=== PATIENT | female | born 1985 | race Asian ===

== ENCOUNTER 2021-08-23 15:27 | Outpatient (REF) | payer BC, SELFPAY ==
[2021-08-23 16:54] LABS: HCT 45.4 % (36.0-46.0); HGB 14.9 g/dL (11.2-15.7); MCH 29.3 pg (27.0-33.0); MCHC 32.8 % (32.0-36.0); MCV 89 fL (80-95); MPV 8.3 fL (8.0-11.0); Platelet Count 375 10^3/uL (130-400); RBC 5.09 10^6/uL (3.93-5.22); RDW 12.5 % (11.7-14.6); RDW-SD 41.3 fL; WBC 8.34 10^3/uL (4.4-10.8)
[2021-08-23 16:56] LABS: ALT 26 U/L (14-59); AST 18 U/L (15-37); Albumin 4.2 g/dL (3.4-5.0); Alkaline Phosphatase 69 U/L (46-116); Anion Gap 9.4 mmol/L (3-11); BUN 12 mg/dL (7-18); Bilirubin, Total 0.2 mg/dL (0.2-1.0); CO2 26.6 mmol/L (21.0-32.0); CREATININE 0.7 mg/dL (0.55-1.02); Calcium 9.4 mg/dL (8.5-10.1); Chloride 104 mmol/L (98-107); Glucose 101 mg/dL (74-106); Potassium 4.3 mmol/L (3.5-5.1); Sodium 140 mmol/L (136-145); Total Protein 8.1 g/dL (6.4-8.2)
[2021-08-23 17:20] LABS: Hemoglobin A1C 5.4 % (<5.7)
== END 2021-08-23 15:28 | disposition home or self-care (01) ==
LOC: NCHCN 15:27
PROVIDERS: Visit Provider Nurse Practitioner Family
DX: R73.03 Prediabetes (principal); Z51.81 Encounter for therapeutic drug level monitoring
CPT/HCPCS: 80053; 85027; 83036; 85025

== ENCOUNTER 2021-09-11 14:33 | Outpatient (REF) | payer BC, SELFPAY ==
[2021-09-11 15:03] LABS: Lithium 0.5 mmol/l (0.6-1.2)
== END 2021-09-11 14:34 | disposition home or self-care (01) ==
LOC: NCHCN 14:33
PROVIDERS: PCP Nurse Practitioner Family; Visit Provider Nurse Practitioner Family
DX: F31.9 Bipolar disorder, unspecified (principal); Z51.81 Encounter for therapeutic drug level monitoring
CPT/HCPCS: 80178

== ENCOUNTER 2021-12-28 01:34 | Outpatient (CLI) | payer BC, SELFPAY ==
[2021-12-28 13:11] LABS: Hemoglobin A1C 5.5 % (<5.7)
== END 2021-12-28 01:35 | disposition home or self-care (01) ==
LOC: LOS 01:34
PROVIDERS: PCP Nurse Practitioner Family; Visit Provider Nurse Practitioner Family
DX: R73.03 Prediabetes (principal)
CPT/HCPCS: 36415; 83036

== ENCOUNTER 2022-06-10 04:57 | Outpatient (CLI) | payer BC, SELFPAY ==
[2022-06-10 12:35] LABS: Lithium 0.8 mmol/l (0.6-1.2)
[2022-06-10 12:42] LABS: ALT 24 U/L (14-59); AST 15 U/L (15-37); Albumin 4.1 g/dL (3.4-5.0); Alkaline Phosphatase 74 U/L (46-116); Anion Gap 5.5 mmol/L (3-11); BUN 10 mg/dL (7-18); Bilirubin, Total 0.3 mg/dL (0.2-1.0); CO2 28.5 mmol/L (21.0-32.0); CREATININE 0.9 mg/dL (0.55-1.02); Calcium 9.2 mg/dL (8.5-10.1); Chloride 106 mmol/L (98-107); Estimated GFR 84.44 (mL/min/1.73m2); FREE T4 1.05 ng/dL (0.76-1.46); Glucose 102 mg/dL (74-106); Potassium 4.1 mmol/L (3.5-5.1); Sodium 140 mmol/L (136-145); TSH 0.55 uIU/mL (0.36-3.74); Total Protein 8.3 g/dL (6.4-8.2)
[2022-06-10 12:55] LABS: Vitamin D 25 Total 43.6 ng/mL (30-100)
== END 2022-06-10 04:58 | disposition home or self-care (01) ==
PROVIDERS: PCP Nurse Practitioner Family; Visit Provider Family Medicine
DX: Z51.81 Encounter for therapeutic drug level monitoring (principal)
CPT/HCPCS: 36415; 80053; 82306; 80178; 84439; 84443

== ENCOUNTER 2022-09-23 03:52 | Outpatient (CLI) | payer BC, SELFPAY ==
[2022-09-23 14:26] LABS: ESR 7 mm/hr (0-20)
[2022-09-23 15:30] LABS: ALT 24 U/L (14-59); AST 15 U/L (15-37); Alkaline Phosphatase 72 U/L (46-116); BUN 7 mg/dL (7-18); Bilirubin, Total 0.4 mg/dL (0.2-1.0); CREATININE 0.7 mg/dL (0.55-1.02); Calcium 9.1 mg/dL (8.5-10.1); Chloride 103 mmol/L (98-107); Estimated GFR 114.16 (mL/min/1.73m2); FREE T4 1.14 ng/dL (0.76-1.46); Glucose 120 mg/dL (74-106); Potassium 3.9 mmol/L (3.5-5.1); Sodium 138 mmol/L (136-145); TSH 0.76 uIU/mL (0.36-3.74); Uric Acid 4.5 mg/dL (2.6-6.0)
[2022-09-23 15:45] LABS: Vitamin D 25 Total 44.2 ng/mL (30-100)
[2022-09-23 15:53] LABS: Lithium 0.6 mmol/l (0.6-1.2)
[2022-09-23 21:24] LABS: Rheumatoid Factor <8.6 IU/mL (<12.0)
[2022-09-24 10:41] LABS: Lyme Ab w Rflx to Lyme Confirm Negative (Negative)
[2022-09-24 13:42] LABS: ANA Interpretation Negative (Negative)
[2022-09-25 09:34] LABS: Homocysteine 3.3 umol/L (5.0-13.9)
== END 2022-09-23 03:53 | disposition home or self-care (01) ==
PROVIDERS: PCP Nurse Practitioner Family
DX: F31.9 Bipolar disorder, unspecified (principal); G47.33 Obstructive sleep apnea (adult) (pediatric); R73.03 Prediabetes
CPT/HCPCS: 36415; 80053; 82306; 83090; 85652; 80178; 83036; 84439; 84443; 84550; 86038; 86140; 86431; 86618

== ENCOUNTER 2023-02-14 02:30 | Outpatient (CLI) | payer BC, SELFPAY ==
[2023-02-14 11:05] LABS: HCT 46.7 % (36.0-46.0); HGB 15.2 g/dL (11.2-15.7); MCH 28.4 pg (27.0-33.0); MCHC 32.5 % (32.0-36.0); MCV 87 fL (80-95); MPV 7.6 fL (8.0-11.0); Platelet Count 338 10^3/uL (130-400); RBC 5.35 10^6/uL (3.93-5.22); RDW 12.3 % (11.7-14.6); RDW-SD 39.4 fL; WBC 9.41 10^3/uL (4.4-10.8)
[2023-02-14 12:16] LABS: Lithium 0.6 mmol/l (0.6-1.2)
[2023-02-14 12:34] LABS: ALT 22 U/L (14-59); AST 14 U/L (15-37); Alkaline Phosphatase 66 U/L (46-116); Anion Gap 9.7 mmol/L (3-11); BUN 12 mg/dL (7-18); Bilirubin, Total 0.5 mg/dL (0.2-1.0); CO2 25.3 mmol/L (21.0-32.0); CREATININE 0.7 mg/dL (0.55-1.02); Calcium 9.2 mg/dL (8.5-10.1); Calculated LDL 131 mg/dL (<100); Chloride 103 mmol/L (98-107); Cholesterol 219 mg/dL (<200); Estimated GFR 114.16 (mL/min/1.73m2); Glucose 94 mg/dL (74-106); HDL Cholesterol 49 mg/dL (40-60); Potassium 3.8 mmol/L (3.5-5.1); Sodium 138 mmol/L (136-145); TSH 0.27 uIU/mL (0.36-3.74); Total Protein 8.2 g/dL (6.4-8.2); Triglyceride 196 mg/dL (<150)
[2023-02-17 10:13] LABS: Insulin 14.7 uIU/mL (<29.0)
== END 2023-02-14 02:31 | disposition home or self-care (01) ==
PROVIDERS: PCP Nurse Practitioner Family; Visit Provider Family Medicine
DX: Z00.00 Encounter for general adult medical examination without abnormal findings (principal); R73.03 Prediabetes; F31.9 Bipolar disorder, unspecified
CPT/HCPCS: 36415; 80053; 80061; 82306; 85027; 85652; 80178; 83036; 83525; 84439; 84443; 84550; 86038; 86140; 86431; 86618

== ENCOUNTER 2023-06-06 01:15 | Outpatient (CLI) | payer BC, SELFPAY ==
[2023-06-06 14:06] LABS: HCT 43.5 % (36.0-46.0); HGB 14.7 g/dL (11.2-15.7); MCH 29.2 pg (27.0-33.0); MCHC 33.8 % (32.0-36.0); MCV 87 fL (80-95); MPV 7.7 fL (8.0-11.0); Platelet Count 317 10^3/uL (130-400); RBC 5.03 10^6/uL (3.93-5.22); RDW 12.1 % (11.7-14.6); RDW-SD 38.5 fL
[2023-06-06 14:14] LABS: ESR 11 mm/hr (0-20)
[2023-06-06 14:20] LABS: Hemoglobin A1C 5.2 % (<5.7)
[2023-06-06 16:04] LABS: Vitamin D 25 Total 42.6 ng/mL (30-100)
[2023-06-06 16:07] LABS: ALT 23 U/L (14-59); AST 15 U/L (15-37); Albumin 4.1 g/dL (3.4-5.0); Alkaline Phosphatase 69 U/L (46-116); Anion Gap 11.8 mmol/L (3-11); BUN 10 mg/dL (7-18); Bilirubin, Total 0.5 mg/dL (0.2-1.0); CO2 24.2 mmol/L (21.0-32.0); CREATININE 0.8 mg/dL (0.55-1.02); Chloride 103 mmol/L (98-107); Estimated GFR 96.66 (mL/min/1.73m2); Glucose 96 mg/dL (74-106); Potassium 3.8 mmol/L (3.5-5.1); Sodium 139 mmol/L (136-145); TSH 0.79 uIU/Ml (0.36-3.74); Total Protein 7.9 g/dL (6.4-8.2)
[2023-06-06 16:11] LABS: C-Reactive Protein < 0.50 mg/dL (<or=0.5)
[2023-06-06 16:48] LABS: T4 10.9 ug/dL (4.7-13.3); Vitamin B12 822 pg/mL (193-986)
[2023-06-06 16:56] LABS: Folate > 20.0 ng/mL (8.6-20.0)
[2023-06-06 22:36] LABS: T3, Total 245 ng/dL (97-169)
== END 2023-06-06 01:16 | disposition home or self-care (01) ==
PROVIDERS: PCP Nurse Practitioner Family; Visit Provider Family Medicine
DX: R53.81 Other malaise (principal); R73.03 Prediabetes
CPT/HCPCS: 36415; 80053; 82306; 85027; 85652; 82607; 82746; 83036; 83525; 84436; 84443; 84480; 86140